=== PATIENT | male | born 1990 | race Two or more races ===

== ENCOUNTER 2016-08-28 11:00 | Emergency (ER) | payer OTHER ==
[~2016-08-28] VITALS: Ht 165.1 cm; Wt 89.0 kg
[2016-08-28 11:07] VITALS: Ht 165.1 cm; Wt 89.0 kg
[2016-08-28] MEDS ORDERED: morphine 4 MG/ML VIAL IV STA (11:34)
[2016-08-28] MEDS ORDERED: ONDANSETRON 4 MG INJ IV STA (11:34)
[2016-08-28] MEDS ORDERED: SOD CHLORIDE 0.9% 1,000 ML IV STA (11:34)
[2016-08-28 12:01] LABS: BASOPHIL # 0.1 10^3/ul (0.0-0.1); BASOPHILS % 0.8 % (0.0-2.0); EOSINOPHILS # 0.1 10^3/ul (0.0-0.5); EOSINOPHILS % 0.4 % (0.0-7.0); HEMATOCRIT 43.2 % (42.0-52.0); HEMOGLOBIN 14.7 g/dl (14.0-18.0); LYMPHOCYTES # 1.8 10^3/ul (0.8-2.9); LYMPHOCYTES % 10.3 % (15.0-51.0); MEAN CORPUSCULAR HEMOGLOBIN 27.4 pg (29.0-33.0); MEAN CORPUSCULAR VOLUME 80.6 fl (82.0-101.0); MONOCYTE # 1.3 10^3/ul (0.3-0.9); MONOCYTES % 7.1 % (0.0-11.0); NEUTROPHIL # 14.7 10^3/ul (1.6-7.5); NEUTROPHILS % 81.4 % (39.0-77.0); PLATELET COUNT 324 10^3/UL (140-440); RED BLOOD COUNT 5.36 10^6/ul (4.70-6.10)
[2016-08-28 12:02] LABS: CONDITION 1; LH ANALYZER COMMENTS 1
[2016-08-28 12:08] LABS: INR 0.98; PARTIAL THROMBOPLASTIN TIME 28.1 Sec (25.0-35.0)
[2016-08-28 12:13] LABS: POTASSIUM 4.6 mmol/L (3.5-5.1)
[2016-08-28 12:15] LABS: CREATININE 0.79 mg/dl (0.61-1.24)
[2016-08-28 12:16] LABS: CALCIUM 9.9 mg/dl (8.4-10.2)
[2016-08-28] MEDS ORDERED: HYDROmorphONE 1 MG/ML SYG IV STA ×4 (12:25→16:28)
[2016-08-28] MEDS ORDERED: IOHEXOL 300MG/ML 150 ML BTL ONE (12:36)
[2016-08-28] MEDS ORDERED: SOD CHLORIDE 0.9% 100 ML ONE (12:36)
--- NOTE | 2016-08-28 13:01 | RADRPT ---
PROCEDURE: CT abdomen and pelvis with contrast. CLINICAL INDICATION: Rectal pain TECHNIQUE: CT scan of the abdomen and pelvis with contrast [facility] The patient was scanned after administration of 100 cc of Omnipaque-300 intravenous contrast. Sagittal and coronal reformatted images were obtained from the axial source images. DLP 1449.2 mGycm. CTDIvol 21.8 mGy COMPARISON: None. FINDINGS: There is enhancing fluid collection seen within the perirenal fat posterior to the anus and this skyla sures up to 6.6 x 5.1 x 4.4 cm and is seen extending towards both the left and right-sided posterior anus which has an irregular appearance. On the sagittal view, the inflammatory structure remains i nferior to the level of the pelvic floor with no visible internal peritoneal extension. There is ex tension towards the cutaneous surface with a possible fistulous connection. There is no intraperito delphine small or large bowel inflammation or evidence of obstruction. The appendix is not visible. Th ere is no intraperitoneal free air or free fluid. There are no enlarged lymph nodes. The lung bases are clear. There is normal density and enhancement of the liver with no focal lesion or biliary ductal dilatati on. The gallbladder is unremarkable without inflammation, and the portal vein is intact without thr ombus. The spleen is unremarkable without mass. The adrenal glands are within normal limits without mass. The kidneys enhance symmetrically bilaterally without hydronephrosis or perinephric stranding. The pancreas is unremarkable without focal lesion or surrounding inflammatory changes. There is no bowel obstruction or focal bowel inflammation. The appendix is unremarkable. There is diverticulosis without diverticulitis. There is no free air or free fluid. There are no enlarged l ymph nodes. The aorta is unremarkable and there is no acute osseous abnormality. The prostate is grossly unremarkable. IMPRESSION: Perianal abscess is seen posterior to the anus with extension towards the perirenal fat on the left and right side of the anus with possible cutaneous extension. There is no visible intraperitoneal e xtension. There is a fecal filled colon without obstruction. There is no intraperitoneal bowel inflammation. RPTAT: AA .Hilaria Matthew MD, MD Date Time Electronically viewed and signed by .Hilaria Matthew MD, MD on 08/28/2016 13:01 .Anila/
[2016-08-28] MEDS: LIDOCAINE 1%/EPI 30 ML INJ INJ SCH ×2 (13:54→14:39)
[2016-08-28] MEDS ORDERED: LIDOCAINE 1%/EPI (MDV) 20 ML INJ IM ONE (14:00)
--- NOTE | 2016-08-28 16:40 | ERA ---
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 He describes some rectal pain for approximately 2-3 days. He saw primary care physician was started on some medications. He thinks they are antibiotics but does not know the name. The pain is increased. The pain is to the posterior aspect of the anus. He describes a fullness sensation. No fevers or chills. Pain is severe, throbbing , worse to touch and worse with sitting down. ROS All systems reviewed and are negative except as per history of present illness. Medications Home Meds Active Scripts Metronidazole* (Flagyl*) 500 Mg Tablet, 500 MG PO TID for 7 Days, TAB Prov:MARLENY BAHENA MD 08/28/16 Ciprofloxacin Hcl* (Ciprofloxacin Hcl*) 500 Mg Tablet, 500 MG PO BID for 7 Days , TAB Prov:MARLENY BAHENA MD 08/28/16 Ondansetron (Ondansetron Odt) 4 Mg Tab.rapdis, 4 MG PO Q6H Y for NAUSEA AND/OR VOMITING, #30 TAB Prov:MARLENY BAHENA MD 08/28/16 Hydrocodone/Acetaminophen ([place] 10-325 Tablet) 1 Each Tablet, 1 TAB PO Q6H Y for PAIN, #12 TAB Prov:MARLENY BAHENA MD 08/28/16 Allergies Allergies: Coded Allergies: No Known Allergy (Unverified , 08/28/16) PMhx/Soc Medical and Surgical Hx: pt denies Medical Hx, pt denies Surgical Hx Hx Alcohol Use: Yes Hx Substance Use: No Hx Tobacco Use: No Smoking Status: Never smoker FmHx Family History: No diabetes Physical Exam Vitals Vital Signs Date Time Temp Pulse Resp B/P Pulse Ox O2 Delivery O2 Flow Rate FiO2 08/28/16 17:28 99.0 78 16 134/68 98 Room Air 08/28/16 15:15 98.7 75 16 125/82 98 Room Air 08/28/16 12:56 98.9 74 16 124/78 98 Room Air 08/28/16 11:07 99.6 101 16 129/77 98 Physical Exam General: Well developed, well nourished, no acute distress Head: Normocephalic, atraumatic. Eyes: Pupils equally reactive, EOM intact ENT: Moist mucous membranes Neck: Supple, no lymphadenopathy Respiratory: Lungs clear bilaterally, no distress Cardiovascular: RRR, no murmurs, rubs, or gallops Abdominal: Soft, non-tender, non-distended, no peritoneal signs : Hirsute buttocks, palpable induration and fluctuance to bilateral aspects of the posterior anus, internal examination is able to palpate the abscess as well. No hemorrhoids MSK: No edema, no unilateral swelling, 5/5 strength Neurologic: Alert and oriented, moving all extremities, normal speech, no focal weakness, no cerebellar signs Skin: No rash Psych: Normal mood Result Diagram: 08/28/16 1145 08/28/16 1145 Results 24 hrs Laboratory Tests Test 08/28/16 11:45 Activated Partial Thromboplast Time 28.1Sec Anion Gap 20 Basophils # 0.110^3/ul Basophils % 0.8% Blood Morphology Comment Blood Urea Nitrogen 12mg/dl Calcium Level 9.9mg/dl Carbon Dioxide Level 30mmol/L Chloride Level 95mmol/L Creatinine 0.79mg/dl Eosinophils # 0.110^3/ul Eosinophils % 0.4% Glucose Level 103mg/dl Hematocrit 43.2% Hemoglobin 14.7g/dl INR International Normalized Ratio 0.98 Lymphocytes # 1.810^3/ul Lymphocytes % 10.3% Mean Corpuscular Hemoglobin 27.4pg Mean Corpuscular Hemoglobin Concent 34.0g/dl Mean Corpuscular Volume 80.6fl Mean Platelet Volume 8.0fl Monocytes # 1.310^3/ul Monocytes % 7.1% Neutrophils # 14.710^3/ul Neutrophils % 81.4% Nucleated Red Blood Cells # 0.010^3/ul Nucleated Red Blood Cells % 0.0/100WBC Platelet Count 30317^3/UL Potassium Level 4.6mmol/L Prothrombin Time 13.0Sec Prothrombin Time Ratio 1.0 Red Blood Count 5.3610^6/ul Red Cell Distribution Width 13.0% Sodium Level 140mmol/L White Blood Count 18.010^3/ul Current Medications Medications (Trade) Dose Ordered Sig/Cruz Route PRN Reason Start Time Stop Time Status Last Admin Dose Admin Sodium Chloride (NS) 1,000 ml @ 1,000 mls/hr Q1H STAT IV 08/28/16 11:34 08/28/16 12:33 DC 08/28/16 11:58 Morphine Sulfate (morphine) 4 mg ONCE STAT IV 08/28/16 11:34 08/28/16 11:36 DC 08/28/16 11:59 Ondansetron HCl (Zofran Inj) 4 mg ONCE STAT IV 08/28/16 11:34 08/28/16 11:37 DC 08/28/16 11:58 Hydromorphone HCl (Dilaudid) 1 mg ONCE STAT IV 08/28/16 12:25 08/28/16 12:26 DC 08/28/16 12:31 IV Flush 10 ml 10 ml STK-MED ONCE .ROUTE 08/28/16 12:36 08/28/16 12:37 DC Sodium Chloride (NS) 100 ml @ ud STK-MED ONCE .ROUTE 08/28/16 12:36 08/28/16 12:37 DC Iohexol (Omnipaque 300mg/ ml) 150 ml STK-MED ONCE .ROUTE 08/28/16 12:36 08/28/16 12:37 DC Lidocaine/ Epinephrine (Xylocaine 1%/ Epi (Mdv) 20 ml) 20 ml ONCE ONCE IM 08/28/16 14:00 08/28/16 14:01 Cancel Hydromorphone HCl (Dilaudid) 1 mg ONCE STAT IV 08/28/16 13:43 08/28/16 13:45 DC 08/28/16 14:32 Lidocaine/ Epinephrine (Xylocaine 1%/ Epi) 20 ml ONCE INJ 08/28/16 13:54 08/28/16 20:00 Hydromorphone HCl (Dilaudid) 1 mg ONCE STAT IV 08/28/16 15:09 08/28/16 15:10 DC 08/28/16 15:14 Hydromorphone HCl (Dilaudid) 1 mg ONCE STAT IV 08/28/16 16:28 08/28/16 16:29 DC 08/28/16 16:39 Procedures/MDM EKG, MONITORS, & DIAGNOSTIC IMAGING: CT IMPRESSION: Perianal abscess is seen posterior to the anus with extension towards the perirenal fat on the left and right side of the anus with possible cutaneous extension. There is no visible intraperitoneal extension. There is a fecal filled colon without obstruction. There is no intraperitoneal bowel inflammation. RPTAT: AA PROCEDURES: Incision and Drainage Note: The patient was consented prior to procedure and understands the risks, benefits , alternatives. The patient states verbal consent. Location: Perianal abscess Abscess size: Approximately 1 cm Anesthesia: 1% lidocaine with epinephrine approximately 6 cc The area was prepped in a sterile fashion, a sterile field was prepared. A midline abscess incision was made with a scalpel in a linear fashion this was done on the right and left midline aspect of the perianal area. Unfortunately I was unable to express purulent material, despite blunt dissection. Care was maintained to avoid incision into the anal tissue and avoidance of the dentate line. LAB INTERPRETATION: Leukocytosis MEDICAL DECISION MAKING: The patient presents with clinical signs and symptoms of perianal abscess. The patient will benefit from CT imaging to rule out perirectal abscess that may require surgical drainage. The patient will benefit from pain control laboratory testing and reevaluation. ER COURSE: CT imaging confirms perianal abscess. For this reason I believe the bedside I& D attempt would be reasonable. However, as documented above I attempted right and left approach without ability to reach the abscess. I am uncomfortable performing deeper dissection and believe that a general surgeon should perform this test. I spoke to Dr. Victoria will come to the bedside to help assist with bedside drainage. The patient has received multiple doses of pain medication. Dr. Victoria had performed bedside needle aspiration with success. He recommends Cipro and Flagyl, sitz baths and return precautions were discussed with the patient. He recommends a culture that has been sent. He feels this is most likely a gram-negative organism and does not require MRSA coverage. I appreciate his consultation and procedure I kept the patient and/or family informed of laboratory and diagnostic imaging results throughout the emergency room course. DISPOSITION PLAN: We discussed follow up with the patient's primary care doctor within 24 to 48 hours as needed. We also discussed return to the emergency room for worsening symptoms or worsening condition. Discharge Medications: [place], Zofran, Cipro, Flagyl We discussed the use of narcotics including avoidance of operating heavy machinery and driving as well as its addictive properties. Departure Diagnosis: Primary Impression: Perirectal abscess Additional Impression: Leukocytosis Qualified Code: D72.829 - Leukocytosis, unspecified type Condition: MARLENY Levine MD Aug 28, 2016 16:40
[2016-08-28 17:28] VITALS: BP 134/68; PULSE 78; RESP 16; TEMP 99
[2016-08-28] MEDS ORDERED: ONDA4TAB14 PO (17:41)
[2016-08-28] MEDS ORDERED: HYDR-902 PO (17:41)
[2016-08-28] MEDS ORDERED: CIPR500T4 PO (17:41)
[2016-08-28] MEDS ORDERED: METR500T PO (17:41)
--- NOTE | 2016-08-28 18:24 | CONS ---
DATE OF ADMISSION: 08/28/2016 DATE OF CONSULTATION: 08/28/2016 REASON FOR CONSULTATION: Perianal abscess. HISTORY OF PRESENT ILLNESS: The patient is a 25-year-old gentleman who presents to the emergency ro om with 4 days of perirectal pain, increasing in severity. The patient was seen by his primary care physician and was allegedly started on some antibiotics, but this is not certain. The patient pres ented to the emergency room with increased perianal pain. A CT scan showed a 6.6 cm posterior peria nal abscess. An attempt at I and D was made under local anesthesia by the ER physician without retr ieval of any pus. Surgical consultation was requested in that regard. The ER physician felt frustr ated by inability up to achieve drainage, as he states that the abscess was quite palpable. The pat ient has had no fevers or chills. PAST MEDICAL HISTORY: No previous abdominal surgeries. No previous hospitalizations. OUTPATIENT MEDICATIONS: Include: 1. Cipro. 2. Flagyl. ALLERGIES: NONE. REVIEW OF SYSTEMS: HEAD, EARS, EYES, NOSE, AND THROAT: Unremarkable. PULMONARY: No history of shortness of breath or pneumonia. CARDIAC: No history of chest pain or arrhythmia. ABDOMEN: Unremarkable. GENITOURINARY: As in the HPI. PHYSICAL EXAMINATION: GENERAL: The patient is a morbidly obese 25-year-old Tajik speaking male who appears uncomfortab le. Vital signs are stable and he is afebrile. HEAD, EARS, EYES, NOSE, THROAT: Within normal limits. LUNGS: Clear. HEART: Regular rhythm. ABDOMEN: Obese, but soft and nontender. RECTAL: The patient has indurated, fluctuant area near the anus at 6 o'clock in lithotomy position. EXTREMITIES: Unremarkable. LABORATORY DATA: The patient's hematocrit is 43 with a white count of 18,000 and a left shift with 81.[address] findings as noted above. PROCEDURE: A needle was inserted into the indurated, fluctuant area at 6 o'clock with prompt retrie milad of 10 mL of creamy [id number] pus. This was done through the attempted I and D site. PLAN: The patient can be treated with Sitz baths 3 times a day and continue with Cipro and Flagyl. Because of the aspiration was through the I and D site, it is expected and hope that the remainder of perianal collection will be able to drain through the I and D site. Arrangements are being made for outpatient followup in my office in the next several days. The patient is instructed to return to the ER tomorrow if there is no demonstrable relief in symptoms. Dictated By: BLAZE HARLEY/MISAEL Conf#: [id number] DID#: [id number]
== END 2016-08-28 18:13 | disposition home or self-care (01) ==
LOC: E/R 11:00
DX: K61.1 Rectal abscess (principal); D72.829 Elevated white blood cell count, unspecified
CPT/HCPCS: 36415; 74177; 80048; 85025; 85610; 85730; 87070; 96374; 96375; 96376; J1170; J2270; J2405; J7030; Q9967; Z7502; Z7610

== ENCOUNTER 2016-08-29 21:39 | Emergency (ER) | payer SELFPAY ==
[~2016-08-29] VITALS: Ht 180.3 cm; Wt 101.5 kg
[~2016-08-29 21:39] MED LIST: CIPR500T4 PO; HYDR-902 PO; METR500T PO; ONDA4TAB14 PO
[2016-08-29 22:51] VITALS: Ht 180.3 cm; Wt 101.5 kg
== END 2016-08-30 00:58 | disposition left against medical advice (07) ==
LOC: FTE 21:39
DX: Z53.21 Procedure and treatment not carried out due to patient leaving prior to being seen by health care provider (principal)

== ENCOUNTER 2016-08-31 15:31 | Inpatient (IN) | payer OTHER ==
[~2016-08-31] VITALS: Ht 180.3 cm; Wt 103.0 kg
[2016-08-31] MEDS ORDERED: SODIUM CHLORIDE 0.9% 1L BAG IV* STA (16:53)
[2016-08-31] MEDS ORDERED: ONDANSETRON 4 MG INJ IV STA (16:53)
[2016-08-31] MEDS ORDERED: HYDROmorphONE 1 MG/ML SYG IV STA ×2 (16:53→20:11)
[2016-08-31] MEDS ORDERED: PIPER-TAZO 3.375 GM IV (PMX) 100 ML IVPB STA (16:53)
[2016-08-31] MEDS ORDERED: VANCOMYCIN 1 GM (PMX) 250 ML IVPB ONE (17:00)
[2016-08-31 17:31] LABS: HEMATOCRIT 40.9 % (42.0-52.0); HEMOGLOBIN 14.1 g/dl (14.0-18.0); MEAN CORPUSCULAR HEMOGLOBIN 27.5 pg (29.0-33.0); MEAN CORPUSCULAR HGB CONC 34.4 g/dl (32.0-37.0); MEAN CORPUSCULAR VOLUME 80.1 fl (82.0-101.0); MEAN PLATELET VOLUME 7.5 fl (7.4-10.4); PLATELET COUNT 386 10^3/UL (140-440); RED BLOOD COUNT 5.11 10^6/ul (4.70-6.10); UNCORRECTED WBC 19.3 10^3/ul (4.8-10.8); WHITE BLOOD COUNT 19.3 10^3/ul (4.8-10.8)
[2016-08-31 17:38] LABS: CONDITION 1; LH ANALYZER COMMENTS 1
[2016-08-31 17:45] LABS: CHLORIDE 98 mmol/L (97-110)
[2016-08-31 17:46] LABS: ALBUMIN 4.3 g/dl (3.3-4.9)
[2016-08-31 17:47] LABS: POTASSIUM 4.2 mmol/L (3.5-5.1); SODIUM 138 mmol/L (135-144)
[2016-08-31 17:49] LABS: ALANINE AMINOTRANSFERASE 25 IU/L (13-69); ALBUMIN/GLOBULIN RATIO 1.04; ALKALINE PHOSPHATASE 82 IU/L (42-121); ANION GAP 18 (8-16); ASPARTATE AMINO TRANSFERASE 22 IU/L (15-46); BILIRUBIN,INDIRECT 0.3 mg/dl (0-1.1); BILIRUBIN,TOTAL 0.3 mg/dl (0.2-1.3); BLOOD UREA NITROGEN 9 mg/dl (7-20); CARBON DIOXIDE 26 mmol/L (21-31); CREATININE 0.74 mg/dl (0.61-1.24); GLUCOSE 100 mg/dl (70-220); TOTAL PROTEIN 8.4 g/dl (6.1-8.1)
[2016-08-31 17:50] LABS: CALCIUM 9.8 mg/dl (8.4-10.2); INR 1.08; PT RATIO 1.1
[2016-08-31 17:51] LABS: PARTIAL THROMBOPLASTIN TIME 26.9 Sec (25.0-35.0)
--- NOTE | 2016-08-31 17:53 | RADRPT ---
PROCEDURE: XR Chest. CLINICAL INDICATION: chest pain TECHNIQUE: Single frontal view of the chest was obtained COMPARISON: None FINDINGS: The heart and mediastinum are within normal limits. The lungs are clear. There is no pleural effusion or pneumothorax. RPTAT: AA IMPRESSION: No acute disease. .El Muñoz MD, Date Time Electronically viewed and signed by .El Muñoz MD, on 08/31/2016 17:53 .S/
[2016-08-31] MEDS ORDERED: ACETAMINOPHEN 325 MG TAB PO ONE (18:00)
[2016-08-31 18:03] LABS: TROPONIN-I < 0.012 ng/ml (0.00-0.12)
[2016-08-31] MEDS ORDERED: SOD CHLORIDE 0.9% 100 ML ONE (18:11)
[2016-08-31] MEDS ORDERED: IOHEXOL 300MG/ML 150 ML BTL ONE (18:11)
[2016-08-31] MEDS ORDERED: ONDANSETRON 4 MG INJ IV PRN ×2 (18:30→20:00)
[2016-08-31] MEDS ORDERED: ACETAMINOPHEN 325 MG TAB PO PRN ×2 (18:30→20:00)
[2016-08-31 18:47] VITALS: TEMP 100.8
--- NOTE | 2016-08-31 19:00 | RADRPT ---
PROCEDURE: CT Abdomen and Pelvis with contrast. CLINICAL INDICATION: Abdomen and pelvis pain. Perirectal abscess. TECHNIQUE: CT scan of the abdomen and pelvis with contrast was performed. The patient was scanned following the uncomplicated intravenous administration of 100 cc of Omnipaque-300. Coronal and sag ittal reformatted images were obtained from the axial source images. Images were reviewed on a high- resolution PACS workstation. Total exam DLP is 1559.91 mGy-cm. CTDIvol is 22.69 mGy. One or more of the following dose reduction techniques were used: Automated exposure control, adjustment of the mA and/or kV according to patient size, use of iterative reconstruction technique. COMPARISON: CT scan of the abdomen and pelvis with contrast dated 08/28/2016 FINDINGS: The lung bases are normal. There is no pleural effusion. The liver is normal in size and attenuation. There is no focal hepatic lesion. The gallbladder and bile ducts are normal. The spleen is normal in size. There is no focal splenic lesion. Both adrenals are normal with no enlargement or mass. The pancreas is unremarkable with no mass or evidence of pancreatitis. Both kidneys demonstrate normal contrast enhancement. There is no renal mass or hydronephrosis. The abdominal aorta is not dilated. There is no retroperitoneal lymphadenopathy or mass. There is no pelvic lymphadenopathy or mass. The bladder and distal ureters are normal. The periappendiceal region is unremarkable with no evidence of appendicitis. As seen previously, there is a fluid collection with peripheral enhancement in the candido renal fat po sterior to the anus measuring approximately 5.3 x 4.1 x 5.0 cm, similar to the prior study. There i s no new abscess. There is no free air. The osseous structures are unremarkable with no fracture or lytic lesion. IMPRESSION: 1. Unchanged perianal abscess when compared with 08/28/2016. RPTAT: QQ .Kong Donald MD, MD Date Time Electronically viewed and signed by .Kong Donald MD, on 08/31/2016 18:59 .R/
--- NOTE | 2016-08-31 19:08 | ERA ---
ER Documentation Chief Complaint Date/Time DATE: 08/31/16 TIME: 19:07 Chief Complaint ABSCESS TO LOWER BACK HPI Patient is a 25-year-old male with no medical problems who presents with infection. He has a perianal abscess which he has been dealing with since August 28. He is taking antibiotics but it is getting worse. He did have an aspiration of the abscess done on August [address] Victoria. He does have a primary doctor. He has fever. He has had significant pain. This is his fourth visit to an ER for this issue. He has been to [facility] 3 times and [facility] once. ROS All systems reviewed and are negative except as per history of present illness. Medications Home Meds Active Scripts Metronidazole* (Flagyl*) 500 Mg Tablet, 500 MG PO TID for 7 Days, TAB Prov:MARLENY BAHENA MD 08/28/16 Ciprofloxacin Hcl* (Ciprofloxacin Hcl*) 500 Mg Tablet, 500 MG PO BID for 7 Days , TAB Prov:MARLENY BAHENA MD 08/28/16 Ondansetron (Ondansetron Odt) 4 Mg Tab.rapdis, 4 MG PO Q6H Y for NAUSEA AND/OR VOMITING, #30 TAB Prov:MARLENY BAHENA MD 08/28/16 Hydrocodone/Acetaminophen ([place] 10-325 Tablet) 1 Each Tablet, 1 TAB PO Q6H Y for PAIN, #12 TAB Prov:MARLENY BAHENA MD 08/28/16 Allergies Allergies: Coded Allergies: No Known Allergy (Unverified , 08/28/16) PMhx/Soc Medical and Surgical Hx: pt denies Medical Hx, pt denies Surgical Hx Hx Alcohol Use: Yes Hx Substance Use: No Hx Tobacco Use: No Smoking Status: Never smoker FmHx Family History: No diabetes Physical Exam Vitals Vital Signs Date Time Temp Pulse Resp B/P Pulse Ox O2 Delivery O2 Flow Rate FiO2 08/31/16 18:47 100.8 109 18 127/60 97 Room Air 08/31/16 15:35 101.6 116 20 134/89 98 Physical Exam Const: Severe distress secondary to pain Head: Atraumatic Eyes: Normal Conjunctiva ENT: Normal External Ears, Nose and Mouth. Neck: Full range of motion..~ No meningismus. Resp: Clear to auscultation bilaterally Cardio: Regular rate and rhythm, no murmurs Abd: Soft, non tender, non distended. Normal bowel sounds Skin: No petechiae or rashes Back: No midline or flank tenderness Ext: No cyanosis, or edema Neur: Awake and alert Rectal: Significant pain around the anus with palpation, redness Result Diagram: 08/31/16 1650 08/31/16 1650 Results 24 hrs Laboratory Tests Test 08/31/16 16:50 Activated Partial Thromboplast Time 26.9Sec Alanine Aminotransferase (ALT/SGPT) 25IU/L Albumin 4.3g/dl Albumin/Globulin Ratio 1.04 Alkaline Phosphatase 82IU/L Anion Gap 18 Aspartate Amino Transf (AST/SGOT) 22IU/L Blood Morphology Comment Blood Urea Nitrogen 9mg/dl Calcium Level 9.8mg/dl Carbon Dioxide Level 26mmol/L Chloride Level 98mmol/L Creatinine 0.74mg/dl Direct Bilirubin 0.00mg/dl Globulin 4.10g/dl Glucose Level 100mg/dl Hematocrit 40.9% Hemoglobin 14.1g/dl INR International Normalized Ratio 1.08 Indirect Bilirubin 0.3mg/dl Lactic Acid Level 2.5mmol/L Mean Corpuscular Hemoglobin 27.5pg Mean Corpuscular Hemoglobin Concent 34.4g/dl Mean Corpuscular Volume 80.1fl Mean Platelet Volume 7.5fl Platelet Count 10283^3/UL Potassium Level 4.2mmol/L Prothrombin Time 14.0Sec Prothrombin Time Ratio 1.1 Red Blood Count 5.1110^6/ul Red Cell Distribution Width 13.0% Sodium Level 138mmol/L Total Bilirubin 0.3mg/dl Total Protein 8.4g/dl Troponin I < 0.012ng/ml White Blood Count 19.310^3/ul Current Medications Medications (Trade) Dose Ordered Sig/Cruz Route PRN Reason Start Time Stop Time Status Last Admin Dose Admin Sodium Chloride 3410 ml 3,410 ml BOLUS OVER 2 HOURS STAT IV* 08/31/16 16:53 08/31/16 16:55 DC 08/31/16 17:10 Vancomycin HCl 250 ml @ 125 mls/hr ONCE ONCE IVPB 08/31/16 17:00 08/31/16 18:59 DC 08/31/16 17:42 Piperacillin Sod/ Tazobactam Sod (Zosyn 3.375gm/ 100 ml (Pmx)) 100 ml @ 200 mls/hr ONCE STAT IVPB 08/31/16 16:53 08/31/16 17:22 DC 08/31/16 17:10 Hydromorphone HCl (Dilaudid) 1 mg ONCE STAT IV 08/31/16 16:53 08/31/16 16:55 DC 08/31/16 17:09 Ondansetron HCl (Zofran Inj) 4 mg ONCE STAT IV 08/31/16 16:53 08/31/16 16:55 DC 08/31/16 17:09 Acetaminophen (Tylenol Tab) 650 mg ONCE ONCE PO 08/31/16 18:00 08/31/16 18:01 DC 08/31/16 17:58 IV Flush 10 ml 10 ml STK-MED ONCE .ROUTE 08/31/16 18:11 08/31/16 18:12 DC Sodium Chloride (NS) 100 ml @ ud STK-MED ONCE .ROUTE 08/31/16 18:11 08/31/16 18:12 DC Iohexol (Omnipaque 300mg/ ml) 150 ml STK-MED ONCE .ROUTE 08/31/16 18:11 08/31/16 18:12 DC Ondansetron HCl (Zofran Inj) 4 mg BRIDGE ORDER PRN IV NAUSEA AND/OR VOMITING 08/31/16 18:30 09/01/16 18:29 Acetaminophen (Tylenol Tab) 650 mg ER BRIDGE PRN PO MILD PAIN/FEVER 08/31/16 18:30 09/01/16 18:29 Procedures/MDM CT shows perianal abscess per radiology. Chest x-ray negative per radiology. EKG read by me: Rate/Rhythm: Sinus tachycardia Intervals: Normal Impression: Sinus tachycardia without evidence of ischemia Admit MDM: Patient's infectious symptoms have not stabilized and the patient is at risk of rapid decompensation. The patient will be admitted for careful hydration, antibiotic therapy, and infectious source control. Severe Sepsis criteria: Infectious source: Perianal abscess End organ damage indicated by: Lactate greater than 2 Sepsis Management: Time of recognition of sepsis: Upon arrival Within 3 hours of recognition: Blood cultures x 2 before broad-spectrum antibiotics: Yes 30 ml/kg NS bolus Completed Initial lactate 2.5 Repeat lactate pending Time of recognition of septic shock: No septic shock Septic Shock Assessment: Any lactic acid > 4.0 No Persistent hypotension (SBP < 90 or 40 mmHg drop, MAP < 65) despite 30 mL/kg IV fluid bolus No Volume Re-assessment for Septic Shock (post 30 ml/kg bolus): No septic shock at this time Persistent Hypotension Treatment: Comfort care No Central line Not Required Vasopressor started Not required I considered further perfusion assessment with CVP measurement, SCVO2, bedside ultrasound volume assessment, passive leg raise, trial of further fluid bolus. And proceeded with 30 ml/kg fluid bolus of NSS, broad spectrum antibiotics, and admission. Spoke with Dr. Victoria who will see the patient for likely abscess drainage Accepting Care Team Current data and ongoing care discussed. Admitting Physician: Dr. 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 Provision of immediate and broad-spectrum antibiotic therapy. Simultaneous assessment for possible sources in order to direct targeted therapy. Consideration for invasive and chemical support to prevent cardiopulmonary collapse. Departure Diagnosis: Primary Impression: Severe sepsis Additional Impression: Perirectal abscess Condition: DARYL Ponce MD Aug 31, 2016 19:08
[2016-08-31] MEDS ORDERED: ZOLPIDEM 5 MG TAB PO PRN (20:00)
[2016-08-31] MEDS ORDERED: HYDROCODONE/APAP (5/325) TAB PO PRN (20:00)
[2016-08-31 20:45] VITALS: Ht 180.3 cm; Wt 103.0 kg
[2016-08-31 21:18] VITALS: BP 99/51; RESP 20
[2016-08-31 21:37] LABS: ADD UMIC YES; URINE BILIRUBIN (Dip) NEGATIVE (NEGATIVE); URINE BLOOD (Dip) TRACE (NEGATIVE); URINE COLOR LT. YELLOW (YELLOW); URINE GLUCOSE (Dip) NEGATIVE (NEGATIVE); URINE KETONES (Dip) NEGATIVE (NEGATIVE); URINE LEUKOCYTE ESTERASE (Dip) NEGATIVE (NEGATIVE); URINE NITRITE (Dip) NEGATIVE (NEGATIVE); URINE TOTAL PROTEIN (Dip) NEGATIVE (NEGATIVE); URINE UROBILINOGEN (Dip) 0.2 E.U./dL (0.1-1.0)
[2016-08-31 21:48] LABS: BACTERIA,URINE FEW; SQUAMOUS EPITHELIAL CELL,UR FEW; URINE RBCS 0-2 /HPF (0)
[2016-08-31 22:05] LABS: EOSINOPHILS # 0.2 10^3/ul (0.0-0.5); LYMPHOCYTES # 2.1 10^3/ul (0.8-2.9); MONOCYTE # 1.5 10^3/ul (0.3-0.9); NEUTROPHIL # 14.7 10^3/ul (1.6-7.5)
[2016-08-31] MEDS ORDERED: HYDROCODONE/APAP (10/325) TAB PO PRN (22:30)
[2016-08-31] MEDS ORDERED: morphine 4 MG/ML VIAL IV PRN (23:30)
[2016-08-31] MEDS: morphine 2 MG INJ IV PRN (23:50)
[2016-09-01] VITALS (21 sets, daily range): BP systolic 102–155; BP diastolic 54–89; PULSE 94–110; RESP 15–31
[2016-09-01] MEDS ORDERED: LEVOFLOXACIN 500MG/D5W (PMX) 100 ML IVPB ONE (01:00)
[2016-09-01] MEDS: morphine 2 MG INJ IV PRN ×2 (01:50→04:18)
[2016-09-01] MEDS: CEFOTAXIME 1 GM INJ IM SCH ×2 (04:19→06:00)
[2016-09-01] MEDS ORDERED: CEFAZOLIN 1 GM INJ ONE (07:00)
[2016-09-01] MEDS: SOD CHLORIDE 0.9% 1,000 ML IV SCH ×3 (10:00→20:38)
[2016-09-01 10:01] LABS: BASOPHIL # 0.1 10^3/ul (0.0-0.1); BASOPHILS % 0.3 % (0.0-2.0); EOSINOPHILS % 0.1 % (0.0-7.0); LYMPHOCYTES # 1.5 10^3/ul (0.8-2.9); LYMPHOCYTES % 7.9 % (15.0-51.0); MEAN CORPUSCULAR HEMOGLOBIN 27.5 pg (29.0-33.0); MEAN CORPUSCULAR HGB CONC 34.1 g/dl (32.0-37.0); MEAN CORPUSCULAR VOLUME 80.4 fl (82.0-101.0); MEAN PLATELET VOLUME 7.5 fl (7.4-10.4); MONOCYTE # 1.7 10^3/ul (0.3-0.9); NEUTROPHIL # 15.9 10^3/ul (1.6-7.5); NEUTROPHILS % 82.7 % (39.0-77.0); PLATELET COUNT 360 10^3/UL (140-440); RED BLOOD COUNT 4.72 10^6/ul (4.70-6.10); RED CELL DISTRIBUTION WIDTH 12.8 % (11.5-14.5); UNCORRECTED WBC 19.2 10^3/ul (4.8-10.8); WHITE BLOOD COUNT 19.2 10^3/ul (4.8-10.8)
[2016-09-01 10:04] LABS: CONDITION 1; LH ANALYZER COMMENTS 1
[2016-09-01 10:13] LABS: ALBUMIN 3.8 g/dl (3.3-4.9)
[2016-09-01 10:14] LABS: POTASSIUM 4.2 mmol/L (3.5-5.1)
[2016-09-01 10:16] LABS: ALBUMIN/GLOBULIN RATIO 1.11; BILIRUBIN,INDIRECT 0.5 mg/dl (0-1.1); BILIRUBIN,TOTAL 0.5 mg/dl (0.2-1.3); CREATININE 0.68 mg/dl (0.61-1.24); TOTAL PROTEIN 7.2 g/dl (6.1-8.1)
[2016-09-01 10:17] LABS: CHOL/HDL RATIO 6.6 RATIO
[2016-09-01] MEDS: HYDROmorphONE 1 MG/ML SYG IV PRN ×2 (10:17→21:27)
--- NOTE | 2016-09-01 12:09 | HP ---
DATE OF ADMISSION: 08/31/2016 CHIEF COMPLAINT: "I have pain in my butt for the last 8 days." HISTORY OF PRESENT ILLNESS: The patient is a healthy 25-year-old male with no significant past medical history who presented to the emergency department initially on 08/28/2016. At that time, the patient was diagnosed with a perirectal abscess. Dr. Victoria aspirated about 10 cc of pus, and the patient was subsequently sent home on oral antibiotics. The patient stated he filled the antibiotics (which were Cipro and Bactrim), but he continued to have pain. He returned to the emergency department the following day; however, he was not seen by a doctor because he left prior to triage. He returned on the day of admission with severe rectal pain, and he was noted to have an elevated white count of approximately 19,000. The patient was given Zosyn and vancomycin, and a repeat CT scan of the abdomen and pelvis revealed fluid collection with peripheral enhancement in the perirenal fat posterior to the anus measured approximately 5.3 x 4.1 x 5 cm, similar to the prior study. There was no evidence of new abscess. As the patient is not improving with oral antibiotics , he was admitted to the medical floor for intravenous antibiotics and surgical evaluation by Dr. Victoria. ALLERGIES: NO KNOWN DRUG ALLERGIES. MEDICATIONS 1. Ciprofloxacin. 2. Bactrim. 3. [place]. 4. Zofran. All of these were prescribed in the emergency department on 08/28/2016. PAST MEDICAL HISTORY: None. PAST SURGICAL HISTORY: None. SOCIAL HISTORY: The patient is a student in [employer], and he works on the weekends in a restaurant. He smokes about 5 cigarettes a day when he drinks his coffee and has 2 to 3 drinks (shots of alcohol) at friends' birthdays and events that occur approximately once every 2 months or so. FAMILY HISTORY: His father when the patient was 1 years old. The patient' s father was 34. He had depression and other medical issues. Mother is otherwise healthy. REVIEW OF SYSTEMS: Essentially negative except as stated in the history of present illness. PHYSICAL EXAMINATION: VITAL SIGNS: His temperature in the ER is 101.6. Current blood pressure is 116 /57, pulse rate between 93 and 103, respiratory rate of 18 to 20, oxygen saturation 93% on room air. HEENT: Normocephalic, atraumatic. Extraocular movements are intact. His pupils are equal, round, and reactive to light and accommodation. His oropharynx was dry and clear. CARDIOVASCULAR: Regular rate and rhythm without appreciable murmurs, rubs, or gallops. LUNGS: Her lungs were clear to auscultation bilaterally without rales, rhonchi , or crackles. ABDOMEN: Soft, nontender, nondistended with normoactive bowel sounds present in all 4 quadrants. EXTREMITIES: No clubbing, cyanosis, or edema. RECTAL: He has tenderness to palpation in the perirectal area at approximately 12 o'clock position. There is visible erythema in this area; however, there is no oozing or pus noted. He was significantly tender to light palpation in this area. LABORATORIES/TESTS: The patient had EKG which revealed sinus tachycardia with no ST changes. His heart rate was approximately 104. His white count was 19.3 , hemoglobin 14.1, hematocrit of 40.9, platelet count of 386, 76% neutrophils, 4 % bands. His PT was 14. INR 1.08. Sodium 138, potassium 4.2, chloride 98, bicarbonate 26, anion gap 18, BUN 9, creatinine 0.74, glucose 100, initial lactic acid was 2.5 which decreased to 0.8 in the span of 5 hours. Calcium was 9.8, total bilirubin 0.3, indirect bilirubin 0.3, AST 22, ALT 25, alkaline phosphatase 82. Troponin 0.012. Total protein 8.4, globulin 4.1, albumin 4.3. Urinalysis was essentially negative other than for trace urine hemoglobin. Specific creatinine of 1.005. His chest x-ray revealed no acute disease. His heart and mediastinum were within normal limits. Lungs were clear. No pleural effusion or pneumothorax noted. IMPRESSION: The patient is a 25-year-old healthy male who presents with approximately 7 to 8 days of rectal pain that has been increasing. He presented to the emergency department on 08/28/2016 and had an I and D as well as IV antibiotics in the emergency department. He was prescribed oral antibiotics. The culture and sensitivity revealed E. coli and group B Strep agalactia, both of which are sensitive to ciprofloxacin and Bactrim which were the medications he was originally prescribed. As he is in the hospital, he has been placed on cefotaxime and IV Levaquin. This was started after the patient received vancomycin and Zosyn in the ER. Both to cefotaxime and Levaquin are sensitive to both organisms. I highly suspect that the Escherichia coli and Strep agalactia are the causative microorganisms based on the previous culture from 2 days prior. For this reason, these antibiotics were chosen. The patient will likely receive an incision and drainage this afternoon with Dr. Victoria. The patient has been kept n.p.o. and is aware of the surgery. Dictated By: MAUREEN MUIR MD SH/NTS Conf#: [id number] DID#: [id number] CC: Henrique Hood MD;*EndCC* MTDD
--- NOTE | 2016-09-01 13:23 | CONS ---
DATE OF ADMISSION: 08/31/2016 DATE OF CONSULTATION: 09/01/2016 HISTORY OF PRESENT ILLNESS: The patient is a 25-year-old gentleman who presented to the emergency r oom here on 08/28/2016 with a perianal abscess. An attempted drainage was done, without results. I saw the patient in consultation and then successfully aspirated over 10 mL of [id number] pus . The cultures have come back as E. coli. The patient did not improve as an outpatient. He return s with severe rectal pain and leukocytosis of 19,000. The patient has been admitted and started on Cipro and Flagyl. Surgical consultation was requested in that regard. PAST MEDICAL HISTORY: No previous hospitalizations or illnesses other than above. REVIEW OF SYSTEMS: HEAD, EARS, EYES, NOSE AND THROAT: Unremarkable. PULMONARY: No history of pneumonia, asthma, or shortness of breath. CARDIAC: No history of chest pain or NH. ABDOMEN: Unremarkable. EXTREMITIES: Unremarkable. MEDICATIONS: As noted above. ALLERGIES: NONE. CO-MORBID CONDITIONS: Morbid obesity. PHYSICAL EXAMINATION: GENERAL: The patient is a morbidly obese 25-year-old gentleman, who is lying on his abdomen, and he has moderate rectal discomfort. HEENT: Within normal limits. LUNGS: Clear. HEART: Regular rhythm. ABDOMEN: Abdomen is obese, soft, nontender. RECTAL: Compatible with an anterior perianal abscess. Internal rectal examination deferred. EXTREMITIES: Unremarkable. LABORATORY DATA: Hematocrit is 38 with a white count of 19,200 and a left shift. Abdomen and pelvi s CT showed unchanged perianal abscess when compared to 08/28/2016. IMPRESSION: Perianal abscess. PLAN: Patient will undergo examination under anesthesia with incision and drainage under general an esthesia. The procedure and risks have been outlined to the patient, and informed consent has been given. Dictated By: BLAZE HARLEY/MISAEL Conf#: [id number] DID#: [id number]
[2016-09-01] MEDS: CEFOTAXIME 1 GM/50 ML (PMX) 50 ML IVPB SCH ×2 (13:55→21:27)
[2016-09-01] MEDS ORDERED: FENTAnyl 50 MCG/ML VIAL ONE ×2 (15:34→16:11)
[2016-09-01] MEDS ORDERED: MIDAZOLAM 1 MG/ML 2 ML INJ ONE (15:34)
[2016-09-01] MEDS ORDERED: PROPOFOL 20 ML ONE ×2 (15:34→16:19)
[2016-09-01] MEDS ORDERED: BUPIVACAINE 0.25%/EPI (SDV) 30 ML INJ ONE (15:44)
[2016-09-01] MEDS ORDERED: HYDROmorphONE 2 MG/ML SYG ONE (16:21)
[2016-09-01] MEDS ORDERED: ONDANSETRON 4 MG INJ IV PRN ×2 (16:30→22:00)
[2016-09-01] MEDS ORDERED: METOCLOPRAMIDE 10 MG INJ IV PRN (16:30)
[2016-09-01] MEDS ORDERED: MEPERIDINE 25 MG INJ IV PRN (16:30)
[2016-09-01] MEDS ORDERED: HYDROmorphONE (0.2 MG/ML) 10ML SYG IV PRN ×2 (16:30)
[2016-09-01] MEDS ORDERED: DIPHENHYDRAMINE 50 MG INJ IV PRN (16:30)
[2016-09-01] MEDS: HYDROmorphONE (0.2 MG/ML) 10ML SYG IV PRN ×2 (17:05→17:24)
--- NOTE | 2016-09-01 17:27 | OPR ---
DATE OF OPERATION: PREOPERATIVE DIAGNOSIS: Perianal abscess. OPERATION PERFORMED: 1. Incision and drainage. 2. Examination under anesthesia. POSTOPERATIVE DIAGNOSIS: Perianal abscess. SURGEON: Blaze Victoria MD. ANESTHESIA: General. ANESTHESIOLOGIST: Dr. Price. OPERATIVE REPORT: After satisfactory general anesthesia was achieved, the patient was placed in lit hotomy position, and the perineum was shaved, prepped, and draped. There was a bulging of the peria nal tissues at 6:00. A needle was inserted, with retrieval of several mL of pus. This was submitte d for culture and sensitivity. Next, a 3-cm vertical skin incision was made at 6 o'clock and cathie d down to the subcutaneous tissues. An abscess cavity was entered and explosively decompressed itse lf. The area was then suctioned off and irrigated. The wound was infiltrated with 20 mL of 0.25% M arcaine with epinephrine and packed with 1-inch iodoform gauze. A dry dressing was applied. Sponge and needle counts reported as correct x2. The patient tolerated the procedure well and without incident or complication. Estimated blood loss less than 10 mL. Dictated By: BLAZE HARLEY/MISAEL Conf#: [id number] DID#: [id number]
[2016-09-01] MEDS ORDERED: morphine 2 MG INJ IV PRN (22:00)
[2016-09-01] MEDS ORDERED: OXYCODONE/ACETAMINOPHEN (5/325) TAB PO PRN ×2 (22:00)
[2016-09-02 01:00] VITALS: BP 127/62; PULSE 90; RESP 18
[2016-09-02 02:30] VITALS: BP 125/60; PULSE 85; RESP 18
[2016-09-02 03:30] VITALS: BP 121/59; PULSE 81; RESP 18
[2016-09-02 05:00] VITALS: BP 128/60; PULSE 78; RESP 20
[2016-09-02] MEDS: SOD CHLORIDE 0.9% 1,000 ML IV SCH (06:01)
[2016-09-02] MEDS: HYDROmorphONE 1 MG/ML SYG IV PRN ×3 (06:05→12:08)
[2016-09-02] MEDS: CEFOTAXIME 1 GM/50 ML (PMX) 50 ML IVPB SCH ×2 (06:05→13:52)
[2016-09-02 06:39] LABS: BASOPHIL # 0.1 10^3/ul (0.0-0.1); BASOPHILS % 0.3 % (0.0-2.0); EOSINOPHILS # 0.1 10^3/ul (0.0-0.5); EOSINOPHILS % 0.8 % (0.0-7.0); HEMATOCRIT 35.5 % (42.0-52.0); HEMOGLOBIN 12.2 g/dl (14.0-18.0); LYMPHOCYTES # 1.5 10^3/ul (0.8-2.9); LYMPHOCYTES % 9.2 % (15.0-51.0); MEAN CORPUSCULAR HEMOGLOBIN 27.8 pg (29.0-33.0); MEAN CORPUSCULAR HGB CONC 34.4 g/dl (32.0-37.0); MEAN CORPUSCULAR VOLUME 80.8 fl (82.0-101.0); MEAN PLATELET VOLUME 7.7 fl (7.4-10.4); MONOCYTE # 1.6 10^3/ul (0.3-0.9); MONOCYTES % 9.7 % (0.0-11.0); NEUTROPHIL # 13.4 10^3/ul (1.6-7.5); PLATELET COUNT 352 10^3/UL (140-440); RED BLOOD COUNT 4.39 10^6/ul (4.70-6.10); RED CELL DISTRIBUTION WIDTH 12.5 % (11.5-14.5); UNCORRECTED WBC 16.7 10^3/ul (4.8-10.8); WHITE BLOOD COUNT 16.7 10^3/ul (4.8-10.8)
[2016-09-02 06:43] LABS: CONDITION 1; LH ANALYZER COMMENTS 1
[2016-09-02 07:10] VITALS: BP 126/58; RESP 16
[2016-09-02 07:51] VITALS: BP 110/77; PULSE 88; RESP 18
--- NOTE | 2016-09-02 14:03 | PN ---
Date/Time of Note Date/Time of Note DATE: 09/02/16 TIME: 14:00 Assessment/Plan VTE Prophylaxis VTE Prophylaxis Intervention: SCD's Lines/Catheters IV Catheter Type (from Nrsg): Saline Lock Urinary Cath still in place: No Assessment/Plan Assessment/Plan 25-year-old healthy male; 1. PeriAnal abscess, s/p surgical I&D POD#1 Continue Cipro at home Ok to d/c home per Dr Victoria with Home health accountant tax to follow, per Dr Victoria instructions to RN, patient to do Stz bath TID with dry dressing afterwards F/u with Dr Victoria in 1 week F/u with PCP within 1 week Prophylaxis: tolerating po and ambulatory Disposition: d/c home with home health RN for wound care and patient should continue Sitz bath as recommended by Dr Victoria Subjective 24 Hr Interval Summary Free Text/Dictation Patient ambulatory With Perianal pain but WBC down and on Cipro now, would also continue Flagyl for now Patient had sitz bath x1 here and packing removed. Per Dr Victoria Sitz bath to be done TID and dry dressing afterwards Exam/Review of Systems Vital Signs Vitals Vital Signs Date Time Temp Pulse Resp B/P Pulse Ox O2 Delivery O2 Flow Rate FiO2 09/02/16 12:15 98.2 09/02/16 08:23 80 09/02/16 07:51 18 110/77 97 Room Air 09/01/16 16:40 10.0 Intake and Output 09/01/16 09/01/16 09/02/16 15:00 23:00 07:00 Intake Total 1420 ml 2190 ml Output Total 20 ml Balance 1400 ml 2190 ml Exam Constitutional: alert, oriented, well developed Respiratory: clear to auscultation, normal air movement Cardiovascular: nl pulses, regular rate and rhythm Gastrointestinal: non-tender, soft Genitourinary - Male: other (s/p perianal abscess I&D ) Musculoskeletal: nl extremities to inspection, nl gait and stance Extremities: normal pulses, other (no edema, clubbing or cyanosis ) Neurological: STORY TELLER II-XII intact, nl mental status, nl speech, nl strength Results Result Diagram: 09/02/16 0430 09/01/16 0920 Results 24 hrs Laboratory Tests Test 09/02/16 04:30 Basophils # 0.1 Basophils % 0.3 Blood Morphology Comment Eosinophils # 0.1 Eosinophils % 0.8 Hematocrit 35.5 L Hemoglobin 12.2 L Lymphocytes # 1.5 Lymphocytes % 9.2 L Mean Corpuscular Hemoglobin 27.8 L Mean Corpuscular Hemoglobin Concent 34.4 Mean Corpuscular Volume 80.8 L Mean Platelet Volume 7.7 Monocytes # 1.6 H Monocytes % 9.7 Neutrophils # 13.4 H Neutrophils % 80.0 H Nucleated Red Blood Cells # 0.0 Nucleated Red Blood Cells % 0.0 Platelet Count 352 Red Blood Count 4.39 L Red Cell Distribution Width 12.5 White Blood Count 16.7 H Medications Medications Current Medications Ondansetron HCl (Zofran Inj) 4 mg Q6H PRN IV NAUSEA AND/OR VOMITING; Start at 20:00 Acetaminophen (Tylenol Tab) 650 mg Q4H PRN PO FEVER Last administered on 01:13; Admin Dose 650 MG; Start 08/31/16 at 20:00 Acetaminophen/ Hydrocodone Bitart 1 tab 1 tab Q6H PRN PO pain management Last administered on 08/31/16 22:31; Admin Dose 1 TAB; Start 08/31/16 at 22:30 Sodium Chloride 1,000 ml @ 100 mls/hr Q10H IV Last administered on 09/02/16 06:01; Admin Dose 100 MLS/HR; Start 09/01/16 at 00:00 Cefotaxime Sodium (Claforan 1gm/50 ml (Pmx)) 50 ml @ 100 mls/hr Q8 IVPB Last administered on 09/02/16 13:52; Admin Dose 100 MLS/HR; Start 09/01/16 at 14:00 Hydromorphone HCl (Dilaudid) 1 mg Q6H PRN IV PAIN Last administered on 12:08; Admin Dose 1 MG; Start 09/01/16 at 10:00 Oxycodone/ Acetaminophen (Percocet (5/ 325)) 1 tab Q4H PRN PO MILD PAIN (1-3); Start 09/01/16 at 22:00 Oxycodone/ Acetaminophen (Percocet (5/ 325)) 2 tab Q4H PRN PO MODERATE PAIN (4- 6); Start 09/01/16 at 22:00 Ondansetron HCl (Zofran Inj) 4 mg Q6H PRN IV NAUSEA; Start 09/01/16 at 22:00 FLORES POWELL Sep 02, 2016 14:03
--- NOTE | 2016-09-02 14:46 | PDOCDIS ---
Discharge Instructions CONDITION Patient Condition: Stable HOME CARE INSTRUCTIONS: Special Diet: Regular ACTIVITY: Activity Restrictions: Slowly Increase Activity FOLLOW UP/APPOINTMENTS Appointments Follow up with PCP within 1 week Follow up with Dr Victoria in 1 week Follow up with Home health RN for wound care, sitjonel bath TID with dry dressing afterwards FLORES POWELL Sep 02, 2016 14:46
[2016-09-02] MEDS ORDERED: METR500T PO (14:47)
[2016-09-02] MEDS ORDERED: Oxycodone/Acetamin (5/325) PO (14:47)
[2016-09-02] MEDS ORDERED: CIPR500T4 PO (14:47)
[2016-09-02] MEDS ORDERED: CIPROFLOXACIN 400MG/D5W 200 ML IVPB SCH (21:00)
--- NOTE | 2016-09-03 13:39 | DS ---
DATE OF ADMISSION: 08/31/2016 DATE OF DISCHARGE: 09/02/2016 ADMITTING PHYSICIAN: Dr. Palafox. DISCHARGING PHYSICIAN: Dr. Vanegas GOLD BUYER DURING THIS ADMISSION: Dr. Victoria from General Surgery. CHIEF COMPLAINT ON ADMISSION: Perirectal pain for 8 days. BRIEF HISTORY OF PRESENTING ILLNESS: This is a 25-year-old male with no significant past medical hi story, who apparently was seen in the emergency department 3 days prior to this admission with a per ianal abscess, which was drained at bedside by surgery. Patient was placed on antibiotics, ciproflo xacin and Flagyl, and discharged home. He claimed that he has been compliant with medication. He r e-presented with worsening of the pain, was found to have a perianal abscess, elevated white blood c ell count, started on IV antibiotics, and surgical consult placed with Dr. Victoria. HOSPITAL COURSE: Patient had a surgical incision and drainage of his perianal abscess by Dr. Victoria . On postoperative day #1, he was stable. He remained afebrile. His white count is coming down. It was down to 16,000. He was growing gram-negative rods and gram-positive cocci consistent with Es cherichia coli and Streptococcus agalactiae, both sensitive to ciprofloxacin based on previous cultu res. Therefore, the patient was placed on ciprofloxacin. Also advised to remain on Flagyl for anot her week. Dr. Victoria has given specific instruction for him to have a sitz bath 3 times a day. The patient was encouraged to do it. He was given adequate supply of pain medication and discharged ho me to the care of his aunt. Also, home health wound care nurse has been ordered at the time of disc harge. DISPOSITION: Discharge home with home health. DISCHARGE CONDITION: Stable. DISCHARGE DIET: Regular diet. DISCHARGE ACTIVITY: Resume home activity as tolerated. FOLLOWUP: Patient is to follow up with his primary care physician within 1 week and follow up with Dr. Victoria within 1 week. DISCHARGE DIAGNOSIS: Perianal abscess, status post surgical incision and drainage. DISCHARGE MEDICATIONS: 1. Ciprofloxacin 500 mg p.o. b.i.d. for 1 week. 2. Flagyl 500 mg p.o. t.i.d. for 1 week. 3. Percocet 5/325 at 1 to 2 tabs p.o. q. 6 hours p.r.n. severe pain. Dictated By: FLORES BIANCHI/MISAEL Conf#: [id number] DID#: [id number]
== END 2016-09-02 16:54 | disposition home health service (06) | DRG 349 ==
LOC: FTE 15:31 → PP2 18:24
PROVIDERS: ADMIT Internal Medicine; ATTEND Internal Medicine
PROC: 0D9QXZZ Drainage of Anus, External Approach (ICD-10-PCS; principal; 2016-09-01 16:00)
DX: K61.0 Anal abscess (principal); A49.1 Streptococcal infection, unspecified site; B96.29 Other Escherichia coli [E. coli] as the cause of diseases classified elsewhere
CPT/HCPCS: 36415; 71010; 74177; 80053; 80061; 81001; 81003; 83605; 84484; 85025; 85610; 85730; 87040; 87070; 87075; 87086; 93005; 96365; 96375; J0690; J0698; J1170; J1956; J2250; J2270; J2405; J2543; J3010; J3370; J7030; Q9967